=== PATIENT | male | born 1995 | race Caucasian/White ===

== ENCOUNTER 2019-10-16 22:50 | Emergency (ER) | payer SELFPAY ==
[~2019-10-16] VITALS: Ht 172.7 cm; Wt 66.0 kg
[2019-10-16] MEDS ORDERED: ONDANSETRON HCL 4MG/2ML INJ IV STA (23:04)
[2019-10-16] MEDS ORDERED: SODIUM CHLORIDE 0.9% 1,000 ML IV ONE (23:04)
[2019-10-16 23:49] LABS: BASOPHILS % 0.9 % (0.0-2.0); EOSINOPHILS % 0.9 % (0.0-5.0); HEMATOCRIT. 44.7 % (42.0-52.0); HEMOGLOBIN. 15.1 g/dL (14.0-18.0); LYMPHOCYTES % 24.3 % (20.0-50.0); MEAN CORPUSCULAR VOLUME 88.5 fL (80.0-94.0); MEAN PLATELET VOLUME 7.2 fl (7.4-10.4); MONOCYTES % 4.5 % (2.0-8.0); NEUTROPHILS % 69.4 % (40.0-76.0); PLATELET 384 x1000/uL (130-400); RED BLOOD CELL COUNT 5.05 mill/uL (4.7-6.1); RED CELL DISTRIBUTION WIDTH 12.3 % (11.6-14.6)
[2019-10-17 00:01] LABS: CHLORIDE 107 mEq/L (98-107)
[2019-10-17] MEDS ORDERED: KETOROLAC 30MG/ML VIAL IV ONE (01:30)
[2019-10-17 05:45] VITALS: BP 110/74
== END 2019-10-17 05:45 | disposition home or self-care (01) ==
LOC: ER 22:50
DX: J06.9 Acute upper respiratory infection, unspecified (principal); J32.9 Chronic sinusitis, unspecified; R51 Headache; M79.10 Myalgia, unspecified site; I49.9 Cardiac arrhythmia, unspecified
CPT/HCPCS: 36415; 70450; 71045; 80053; 84484; 85025; 93005; 96374; 96375; 99284; J1885; J2405; J7030; Z7610

== ENCOUNTER 2020-09-06 11:56 | Emergency (ER) | payer SELFPAY ==
[~2020-09-06] VITALS: Ht 167.6 cm; Wt 48.0 kg
[2020-09-06] MEDS ORDERED: ONDANSETRON HCL 4MG/2ML INJ IM STA (14:10)
[2020-09-06] MEDS ORDERED: IBUPROFEN 600MG TABLET PO STA (14:10)
[2020-09-06] MEDS ORDERED: ONDANSETRON 4MG ODT PO STA (14:41)
[2020-09-06 15:00] VITALS: BP 123/79
== END 2020-09-06 15:44 | disposition home or self-care (01) ==
LOC: ER 11:56
DX: B34.9 Viral infection, unspecified (principal); Z20.828 Contact with and (suspected) exposure to other viral communicable diseases
CPT/HCPCS: 71045; 93005; 99283; J2405; Q0162

== ENCOUNTER 2023-12-11 10:52 | Emergency (ER) | payer MEDICAID ==
[~2023-12-11] VITALS: Ht 160 cm; Wt 66.0 kg
[2023-12-11 11:03] VITALS: O2SAT 97
[2023-12-11 11:15] LABS: HEMATOCRIT. 42.9 % (42.0-52.0); HEMOGLOBIN. 14.6 g/dL (14.0-18.0); MEAN CORPUSCULAR HEMOGLOBIN 29.8 pg (28.0-32.0); MEAN CORPUSCULAR VOLUME 87.6 fL (80.0-94.0); MEAN PLATELET VOLUME 6.9 fl (7.4-10.4); PLATELET 339 x1000/uL (130-400); RED CELL DISTRIBUTION WIDTH 12.5 % (11.6-14.6)
[2023-12-11 11:23] LABS: DIFFERENTIAL COMMENT 1
[2023-12-11 12:06] LABS: ALANINE AMINOTRANSFERASE 20 IU/L (10-49); ALBUMIN 4.7 g/dL (3.2-4.8); ASPARTATE AMINOTRANSFERASE 28 IU/L (<34); BILIRUBIN TOTAL 0.5 mg/dL (0.1-1.0); CALCIUM 9.3 mg/dL (8.7-10.4); CARBON DIOXIDE 28 mEq/L (21-32); CHLORIDE 105 mEq/L (98-107); GLUCOSE 91 mg/dL (70-105); POTASSIUM 4.4 mEq/L (3.5-5.1); PROTEIN TOTAL 7.3 g/dL (6.0-8.3); SODIUM 139 mEq/L (136-145); UREA NITROGEN BLOOD 12 mg/dL (9-23)
[2023-12-11 12:10] LABS: PLATELET ESTIMATE NORMAL
[2023-12-11] MEDS: SODIUM CHLORIDE 0.9% 1,000 ML IV ONE (13:22)
[2023-12-11] MEDS: KETOROLAC 15MG/ML VIAL IV ONE (13:23)
[2023-12-11 13:48] LABS: INR 0.9; PROTHROMBIN TIME 10.5 sec (9.6-11.0)
[2023-12-11 16:21] VITALS: BP 112/89; PULSE 93; RESP 12; TEMP 97.9
== END 2023-12-11 16:26 | disposition home or self-care (01) ==
LOC: ER 12:51
DX: R10.32 Left lower quadrant pain (principal)
CPT/HCPCS: 80053; 83690; 85025; 85610; 36415; 74176; 96361; 96374; 99285; J1885; J7030; Z7610 ×2

== ENCOUNTER 2023-12-14 17:02 | Emergency (ER) | payer MEDICAID ==
[~2023-12-14] VITALS: Ht 167.6 cm; Wt 59.0 kg
[2023-12-14 17:44] VITALS: BP 129/84; PULSE 86; RESP 25; TEMP 97.9; O2SAT 100
[2023-12-14] MEDS ORDERED: ONDANSETRON HCL 4MG/2ML INJ IV STA (17:56)
[2023-12-14] MEDS ORDERED: KETOROLAC 30MG/ML VIAL IV STA (17:56)
[2023-12-14] MEDS ORDERED: SODIUM CHLORIDE 0.9% 1,000 ML IV ONE (18:00)
[2023-12-14 18:52] LABS: BASOPHILS % 0.5 % (0.0-2.0); EOSINOPHILS % 8.8 % (0.0-5.0); HEMATOCRIT. 44.6 % (42.0-52.0); LYMPHOCYTES % 11.4 % (20.0-50.0); MEAN CORPUSCULAR HEMOGLOBIN 29.4 pg (28.0-32.0); MEAN CORPUSCULAR HGB CONC 33.5 g/dL (31.0-37.0); MEAN CORPUSCULAR VOLUME 87.7 fL (80.0-94.0); MEAN PLATELET VOLUME 7.1 fl (7.4-10.4); MONOCYTES % 4.8 % (2.0-8.0); NEUTROPHILS % 74.5 % (40.0-76.0); PLATELET 343 x1000/uL (130-400); RED BLOOD CELL COUNT 5.08 mill/uL (4.7-6.1); RED CELL DISTRIBUTION WIDTH 12.7 % (11.6-14.6); WHITE BLOOD COUNT 15.5 x1000/uL (4.5-11.0)
[2023-12-14 19:02] LABS: ALANINE AMINOTRANSFERASE 26 IU/L (10-49); ALBUMIN 4.7 g/dL (3.2-4.8); ASPARTATE AMINOTRANSFERASE 27 IU/L (<34); BILIRUBIN TOTAL 0.4 mg/dL (0.1-1.0); CALCIUM 9.6 mg/dL (8.7-10.4); CARBON DIOXIDE 28 mEq/L (21-32); CHLORIDE 105 mEq/L (98-107); GLUCOSE 100 mg/dL (70-105); POTASSIUM 4.5 mEq/L (3.5-5.1); PROTEIN TOTAL 7.9 g/dL (6.0-8.3); SODIUM 139 mEq/L (136-145); UREA NITROGEN BLOOD 19 mg/dL (9-23)
[2023-12-14 19:08] LABS: CREATININE 1.5 mg/dL (0.6-1.3)
== END 2023-12-14 20:30 | disposition left against medical advice (07) ==
LOC: ER 17:02
DX: R10.9 Unspecified abdominal pain (principal); N17.9 Acute kidney failure, unspecified; D72.829 Elevated white blood cell count, unspecified
CPT/HCPCS: 99283; 80053; 83690; 85025; 36415; J7030